=== PATIENT | male | born 1930 | race Caucasian/White ===

== ENCOUNTER 2017-03-08 22:26 | Observation (INO) | payer OTHER, BC ==
[2017-03-08] MEDS ORDERED: IPRATROPIUM/ALBUTEROL 3 ML DEYVIAL IH ONE (23:18)
[2017-03-08 23:23] LABS: % IMMATURE GRANULYOCYTES 0.3 % (0.0-1.1); ABSOLUTE IMMATURE GRANULOCYTES 0.05 10^3/uL (0.00-0.10); ADD DIFF? NO; ADD MORPH? NO; ADD SCAN? NO; ATYPICAL LYMPHOCYTE FLAG 0 (0-99); FRAGMENT RBC FLAG 0 (0-99); HEMATOCRIT 45.5 % (40.0-51.0); HEMOGLOBIN 14.4 g/dL (13.7-17.5); LEFT SHIFT FLG 0 (0-99); LIPEMIA HEMOLYSIS FLAG 80 (0-99); MEAN CELL HEMOGLOBIN CONCENTR. 31.6 g/dL (32.4-36.7); MEAN CELL VOLUME 94.8 fL (81.5-99.8); MEAN PLATELET VOLUME 11.6 fL (8.7-11.7); PLATELET CLUMPS FLAG 0 (0-99); PLATELET COUNT 207 10^3/uL (150-400); RED CELL DISTRIBUTION WIDTH 12.6 % (11.5-15.2)
--- NOTE | 2017-03-08 23:23 | EDPHY ---
H & P Stated Complaint: c/o sob/urgency/frequency beginning today Time Seen by Provider: 03/08/17 22:53 HPI/ROS: HPI The patient presents with shortness of breath which has been intermittent for the last 1-2 weeks with episodes lasting for minutes which became worse today after seeing his doctor in the afternoon. He had the slow onset of difficulty breathing which she feels both at rest and while exerting himself. It is moderate in severity. He had a small amount of home oxygen at home and uses for 2 minutes with improvement in his symptoms. He does not have any chest pain , leg swelling. He does have a change in his cough and has a yellowish phlegm, usually has clear phlegm. He does not have any fevers or chills. He is not taking any new medications. He also reports urinary urgency and frequency with mild dysuria for the last several days.. REVIEW OF SYSTEMS Constitutional: No fever, no chills. Eyes: No discharge. ENT: No sore throat. Cardiovascular: No chest pain, no palpitations. Respiratory: Positive for shortness of breath Gastrointestinal: No abdominal pain, no vomiting. Genitourinary: No hematuria. Musculoskeletal: No back pain. Skin: No rashes. Neurological: No headache. PMHx: COPD an occasional home oxygen, CHF, atrial fibrillation, CAD with stent in place, history of AAA repair, gout, pacer in place Soc Hx: Moved to [place] from [place] about 1 month ago FHx: PHYSICAL General Appearance: Alert, no distress Eyes: Pupils equal and round no pallor or injection ENT, Mouth: Mucous membranes somewhat dry Respiratory: There are no retractions, lungs are clear to auscultation, faint crackles at the bases Cardiovascular: Regular rate and rhythm Gastrointestinal: Abdomen is soft and non-tender, no masses, bowel sounds normal Neurological: A&O, moves all extremities Skin: Warm and dry, no rashes Musculoskeletal: Neck is supple non tender Extremities: symmetrical, full range of motion, trace lower extremity edema Psychiatric: Patient is oriented X 3, there is no agitation Source: Patient, Family Exam Limitations: No limitations - Medical/Surgical History Hx Chronic Respiratory Disease: Yes Hx Diabetes: No Hx Cardiac Disease: Yes Hx Renal Disease: No Hx Cirrhosis: No Hx Alcoholism: No Hx HIV/AIDS: No Hx Splenectomy or Spleen Trauma: No Other PMH: copd, prostate ca, hyperlipidemia, ischemic cardiomyopathy, afib, dvt , aaa repair, chf, gerd, gout, pacemaker placed, hernia repair x 2, card stent placed - Social History Smoking Status: Former smoker Constitutional: Initial Vital Signs Temperature (C) 36.6 C 03/08/17 22:30 Heart Rate 88 03/08/17 22:30 Respiratory Rate 18 03/08/17 22:30 Blood Pressure 173/107 H 03/08/17 22:30 O2 Sat (%) 92 03/08/17 22:30 O2 Delivery Mode Nasal Cannula O2 (L/minute) 2 Allergies/Adverse Reactions: clindamycin Allergy (Verified 03/08/17 22:40) Home Medications: Medication Instructions Recorded Amlodipine Besylate 03/08/17 Aspirin EC 81 mg (*) 03/08/17 Atrovent Hfa (*) 03/08/17 Colchicine 03/08/17 Combivent Respimat Inhal [place](*) 03/08/17 Coumadin 03/08/17 Crestor 03/08/17 Flovent 110 MCG Hfa MDI (*) 03/08/17 Foradil 03/08/17 IRON 03/08/17 Lasix 40 MG (*) 03/08/17 Lisinopril 03/08/17 Nexium 03/08/17 Nitroglycerin 03/08/17 Medical Decision Making - Diagnostics EKG Interpretation: EKG: Complete interpretation has been separately recorded in the [facility] archive. Summary impression: Multiple PVCs, left bundle branch block Imaging Results: Chest x-ray two view shows cardiomegaly, left-sided pleural effusion, some mild bat wing deformity, interpreted by me, radiology interpretation is pending. Differential Diagnosis: This is an 86-year-old male with multiple medical problems including COPD, CHF, atrial fibrillation, CAD presents from home with intermittent shortness of breath became worse today. On exam, he is generally well-appearing with no tachypnea and O2 sat of 92%. Lungs sound diminished throughout. Differential diagnosis includes COPD with exacerbation, CHF exacerbation, ACS, PE. In the emergency department, patient received DuoNeb with some improvement in his symptoms. Labs were checked and did reveal elevated BNP with elevated BUN and creatinine. He may be intravascularly volume depleted but with CHF exacerbation. Labs also reveal hematuria with leukocyte esterase concerning for urinary tract infection. I will treat him with a dose of ceftriaxone. Pulse ox readings here have been in the high 80s to low 90s. He is slightly tachypneic. He is supposed to have home oxygen at home, however does not have it yet. He feels concerned about going home. As I plan to admit him to the hospitalist. I have discussed the case with Dr. Gil. - Data Points Laboratory Results: Laboratory Results 03/08/17 23:15 03/08/17 23:15 03/08/17 03/08/17 03/08/17 23:55 23:15 23:15 WBC RBC Hgb Hct MCV MCH MCHC RDW Plt Count MPV Neut % (Auto) Lymph % (Auto) [place] % (Auto) Eos % (Auto) Baso % (Auto) Nucleat RBC Rel Count Absolute Neuts (auto) Absolute Lymphs (auto) Absolute Monos (auto) Absolute Eos (auto) Absolute Basos (auto) Absolute Nucleated RBC Immature Gran % Immature Gran # D-Dimer 0.69 ug/mLFEU H ug/mLFEU (0.00-0.50) Sodium 138 mEq/L mEq/L (134-144) Potassium 4.7 mEq/L mEq/L (3.5-5.2) Chloride 106 mEq/L mEq/L (97-110) Carbon Dioxide 21 mEq/l L mEq/l (22-31) Anion Gap 11 mEq/L mEq/L (8-16) BUN 35 mg/dL H mg/dL (7-23) Creatinine 1.8 mg/dL H mg/dL (0.7-1.3) Estimated GFR 36 Glucose 130 mg/dL H mg/dL (70-100) Calcium 8.8 mg/dL mg/dL (8.5-10.4) Troponin I 0.024 ng/mL ng/mL (0.000-0.034) NT-Pro-B Natriuret Pep 4590 pg/mL H pg/mL (0-450) Urine Color PALE YELLOW Urine Appearance HAZY Urine pH 6.0 (5.0-7.5) Ur Specific [place] 1.008 (1.002-1.030) Urine Protein NEGATIVE (NEGATIVE) Urine Ketones NEGATIVE (NEGATIVE) Urine Blood 2+ H (NEGATIVE) Urine Nitrate NEGATIVE (NEGATIVE) Urine Bilirubin NEGATIVE (NEGATIVE) Urine Urobilinogen NEGATIVE EU EU (0.2-1.0) Ur Leukocyte Esterase 2+ H (NEGATIVE) Urine RBC 50-182 /hpf H /hpf (0-3) Urine WBC 25-50 /hpf H /hpf (0-3) Ur Epithelial Cells NONE SEEN /lpf /lpf (NONE-1+) Urine Bacteria TRACE /hpf H /hpf (NONE SEEN) Urine Mucus TRACE /lpf /lpf (NONE-1+) Urine Yeast PRESENT /hpf /hpf (NONE SEEN) Urine Glucose NEGATIVE (NEGATIVE) 03/08/17 23:15 WBC 14.47 10^3/uL H 10^3/uL (3.80-9.50) RBC 4.80 10^6/uL 10^6/uL (4.40-6.38) Hgb 14.4 g/dL g/dL (13.7-17.5) Hct 45.5 % % (40.0-51.0) MCV 94.8 fL fL (81.5-99.8) MCH 30.0 pg pg (27.9-34.1) MCHC 31.6 g/dL L g/dL (32.4-36.7) RDW 12.6 % % (11.5-15.2) Plt Count 207 10^3/uL 10^3/uL (150-400) MPV 11.6 fL fL (8.7-11.7) Neut % (Auto) 80.2 % H % (39.3-74.2) Lymph % (Auto) 12.1 % L % (15.0-45.0) [place] % (Auto) 5.8 % % (4.5-13.0) Eos % (Auto) 1.3 % % (0.6-7.6) Baso % (Auto) 0.3 % % (0.3-1.7) Nucleat RBC Rel Count 0.0 % % (0.0-0.2) Absolute Neuts (auto) 11.59 10^3/uL H 10^3/uL (1.70-6.50) Absolute Lymphs (auto) 1.75 10^3/uL 10^3/uL (1.00-3.00) Absolute Monos (auto) 0.84 10^3/uL H 10^3/uL (0.30-0.80) Absolute Eos (auto) 0.19 10^3/uL 10^3/uL (0.03-0.40) Absolute Basos (auto) 0.05 10^3/uL 10^3/uL (0.02-0.10) Absolute Nucleated RBC 0.00 10^3/uL 10^3/uL (0-0.01) Immature Gran % 0.3 % % (0.0-1.1) Immature Gran # 0.05 10^3/uL 10^3/uL (0.00-0.10) D-Dimer Sodium Potassium Chloride Carbon Dioxide Anion Gap BUN Creatinine Estimated GFR Glucose Calcium Troponin I NT-Pro-B Natriuret Pep Urine Color Urine Appearance Urine pH Ur Specific [place] Urine Protein Urine Ketones Urine Blood Urine Nitrate Urine Bilirubin Urine Urobilinogen Ur Leukocyte Esterase Urine RBC Urine WBC Ur Epithelial Cells Urine Bacteria Urine Mucus Urine Yeast Urine Glucose Medications Given: Discontinued Medications Albuterol/Ipratropium (Duoneb) 3 ml IH EDNOW ONE Stop: 03/08/17 23:19 Last Admin: 03/08/17 23:30 Dose: 3 ml Ceftriaxone Sodium/Dextrose (Rocephin 1 Gm (Premix)) 50 mls @ 100 mls/hr IV EDNOW ONE PRN Reason: Protocol Stop: 03/09/17 01:30 Last Admin: 03/09/17 01:07 Dose: 50 mls Departure - Departure Disposition: [facility] Inpatient Acute Clinical Impression: Acute exacerbation of CHF (congestive heart failure) Qualifiers: Congestive heart failure type: unspecified congestive heart failure type Qualified Code(s): I50.9 - Heart failure, unspecified Dyspnea Qualifiers: Dyspnea type: unspecified Qualified Code(s): R06.00 - Dyspnea, unspecified UTI (urinary tract infection) Qualifiers: Urinary tract infection type: site unspecified Hematuria presence: with hematuria Qualified Code(s): N39.0 - Urinary tract infection, site not specified Acute renal failure Qualifiers: Acute renal failure type: unspecified Qualified Code(s): N17.9 - Acute kidney failure, unspecified Condition: Fair
[2017-03-08 23:33] LABS: ANION GAP 11 mEq/L (8-16); CALCIUM 8.8 mg/dL (8.5-10.4); CARBON DIOXIDE 21 mEq/l (22-31); CHLORIDE 106 mEq/L (97-110); CREATININE 1.8 mg/dL (0.7-1.3); GLOMERULAR FILTRATION RATE 36; GLUCOSE 130 mg/dL (70-100); POTASSIUM 4.7 mEq/L (3.5-5.2); SODIUM 138 mEq/L (134-144)
[2017-03-08 23:44] LABS: TROPONIN I 0.024 ng/mL (0.000-0.034)
[2017-03-09 00:10] LABS: COLOR PALE YELLOW; LEUKOCYTE ESTERASE,URINE 2+ (NEGATIVE); NITRITE,URINE NEGATIVE (NEGATIVE)
[2017-03-09 00:20] LABS: BACTERIA TRACE /hpf (NONE SEEN); MUCUS TRACE /lpf (NONE-1+); RBC,URINE 50-182 /hpf (0-3); WBC,URINE 25-50 /hpf (0-3); YEAST PRESENT /hpf (NONE SEEN)
[2017-03-09] MEDS ORDERED: ACETAMINOPHEN 325 MG TAB PO PRN (03:04)
[2017-03-09] MEDS ORDERED: ONDANSETRON DISINTEGRATING 4 MG TAB PO PRN (03:04)
[2017-03-09] MEDS ORDERED: IPRATROPIUM/ALBUTEROL 3 ML DEYVIAL IH PRN (03:04)
[2017-03-09] MEDS ORDERED: ONDANSETRON 4 MG/2 ML VIAL IVP PRN (03:04)
--- NOTE | 2017-03-09 03:56 | PDGENHP ---
History and Physical - Chief Complaint Shortness of breath - History of Present Illness 86 yo M w/ COPD, CHF, CAD presents with shortness of breath. He moved to [place] from [place] 1 month ago and has been intermittently short of breath since. He saw Dr. Recio in the morning of the same day and was noted to be mildly hypoxic with ambulation (85%). He was supposed to have O2 delivered to his house but this never happened. Later in the day after he got home, he began to feel short of breath so he came to the ED. Of note, he also noted new dysuria today, which he has never noticed in the past. He has a chronic cough that he has had for 20 years, which has not increased in severity. He denies other infectious ROS. He has been on a stable dose of diuretics for a long time and reports that his dry weight is 166 lbs. He weighed 165.7 lbs on admission today and is symptom free at the time of my evaluation after duoneb x1 and supplemental O2. History Information - Allergies/Home Medication List Allergies/Adverse Reactions: clindamycin Allergy (Verified 03/08/17 22:40) Home Medications: Amlodipine Besylate 03/08/17 [Last Taken Unknown] Aspirin EC 81 mg (*) 03/08/17 [Last Taken Unknown] Atrovent Hfa (*) 03/08/17 [Last Taken Unknown] Colchicine 03/08/17 [Last Taken Unknown] Combivent Respimat Inhal [place](*) 03/08/17 [Last Taken Unknown] Coumadin 03/08/17 [Last Taken Unknown] Crestor 03/08/17 [Last Taken Unknown] Flovent 110 MCG Hfa MDI (*) 03/08/17 [Last Taken Unknown] Foradil 03/08/17 [Last Taken Unknown] IRON 03/08/17 [Last Taken Unknown] Lasix 40 MG (*) 03/08/17 [Last Taken Unknown] Lisinopril 03/08/17 [Last Taken Unknown] Nexium 03/08/17 [Last Taken Unknown] Nitroglycerin 03/08/17 [Last Taken Unknown] I have personally reviewed and updated: family history, medical history - Past Medical History coronary artery disease, CHF, COPD - Family History Positive for: stroke - Social History Smoking Status: Former smoker (50+ pack years, quit in July of 2016) Alcohol Use: Other (1-2 drinks daily) Drug Use: None Additional social history: [place] [facility] [place] ; moved from [place] 1 month ago Review of Systems Review of Systems: ROS: 10pt was reviewed & negative except for what was stated in HPI & below Physical Exam Physical Exam: Temp Pulse Resp BP Pulse Ox 36.9 C 89 19 160/88 H 94 03/09/17 02:40 03/09/17 02:40 03/09/17 02:40 03/09/17 02:40 03/09/17 02:40 O2 (L/minute) 2 Constitutional: no apparent distress, appears nourished Eyes: PERRL, EOMI Ears, Nose, Mouth, Throat: moist mucous membranes, no oral mucosal ulcers Cardiovascular: regular rate and rhythym, systolic murmur, edema (Trace b/l JAMES) Respiratory: no respiratory distress, expiratory wheeze (Mild, RML) Gastrointestinal: normoactive bowel sounds, soft, non-tender abdomen Skin: warm, normal color Neurologic: AAOx3, CN II-XII Intact Psychiatric: interacting appropriately, not anxious Lab Data & Imaging Review 03/08/17 23:15 03/08/17 23:15 WBC 14.47 10^3/uL (3.80-9.50) H 03/08/17 23:15 RBC 4.80 10^6/uL (4.40-6.38) 03/08/17 23:15 Hgb 14.4 g/dL (13.7-17.5) 03/08/17 23:15 Hct 45.5 % (40.0-51.0) 03/08/17 23:15 MCV 94.8 fL (81.5-99.8) 03/08/17 23:15 MCH 30.0 pg (27.9-34.1) 03/08/17 23:15 MCHC 31.6 g/dL (32.4-36.7) L 03/08/17 23:15 RDW 12.6 % (11.5-15.2) 03/08/17 23:15 Plt Count 207 10^3/uL (150-400) 03/08/17 23:15 MPV 11.6 fL (8.7-11.7) 03/08/17 23:15 Neut % (Auto) 80.2 % (39.3-74.2) H 03/08/17 23:15 Lymph % (Auto) 12.1 % (15.0-45.0) L 03/08/17 23:15 [place] % (Auto) 5.8 % (4.5-13.0) 03/08/17 23:15 Eos % (Auto) 1.3 % (0.6-7.6) 03/08/17 23:15 Baso % (Auto) 0.3 % (0.3-1.7) 03/08/17 23:15 Nucleat RBC Rel Count 0.0 % (0.0-0.2) 03/08/17 23:15 Absolute Neuts (auto) 11.59 10^3/uL (1.70-6.50) H 03/08/17 23:15 Absolute Lymphs (auto) 1.75 10^3/uL (1.00-3.00) 03/08/17 23:15 Absolute Monos (auto) 0.84 10^3/uL (0.30-0.80) H 03/08/17 23:15 Absolute Eos (auto) 0.19 10^3/uL (0.03-0.40) 03/08/17 23:15 Absolute Basos (auto) 0.05 10^3/uL (0.02-0.10) 03/08/17 23:15 Absolute Nucleated RBC 0.00 10^3/uL (0-0.01) 03/08/17 23:15 Immature Gran % 0.3 % (0.0-1.1) 03/08/17 23:15 Immature Gran # 0.05 10^3/uL (0.00-0.10) 03/08/17 23:15 D-Dimer 0.69 ug/mLFEU (0.00-0.50) H 03/08/17 23:15 Sodium 138 mEq/L (134-144) 03/08/17 23:15 Potassium 4.7 mEq/L (3.5-5.2) 03/08/17 23:15 Chloride 106 mEq/L (97-110) 03/08/17 23:15 Carbon Dioxide 21 mEq/l (22-31) L 03/08/17 23:15 Anion Gap 11 mEq/L (8-16) 03/08/17 23:15 BUN 35 mg/dL (7-23) H 03/08/17 23:15 Creatinine 1.8 mg/dL (0.7-1.3) H 03/08/17 23:15 Estimated GFR 36 03/08/17 23:15 Glucose 130 mg/dL (70-100) H 03/08/17 23:15 Calcium 8.8 mg/dL (8.5-10.4) 03/08/17 23:15 Troponin I 0.024 ng/mL (0.000-0.034) 03/08/17 23:15 NT-Pro-B Natriuret Pep 4590 pg/mL (0-450) H 03/08/17 23:15 Urine Color PALE YELLOW 03/08/17 23:55 Urine Appearance HAZY 03/08/17 23:55 Urine pH 6.0 (5.0-7.5) 03/08/17 23:55 Ur Specific [place] 1.008 (1.002-1.030) 03/08/17 23:55 Urine Protein NEGATIVE (NEGATIVE) 03/08/17 23:55 Urine Ketones NEGATIVE (NEGATIVE) 03/08/17 23:55 Urine Blood 2+ (NEGATIVE) H 03/08/17 23:55 Urine Nitrate NEGATIVE (NEGATIVE) 03/08/17 23:55 Urine Bilirubin NEGATIVE (NEGATIVE) 03/08/17 23:55 Urine Urobilinogen NEGATIVE EU (0.2-1.0) 03/08/17 23:55 Ur Leukocyte Esterase 2+ (NEGATIVE) H 03/08/17 23:55 Urine RBC 50-182 /hpf (0-3) H 03/08/17 23:55 Urine WBC 25-50 /hpf (0-3) H 03/08/17 23:55 Ur Epithelial Cells NONE SEEN /lpf (NONE-1+) 03/08/17 23:55 Urine Bacteria TRACE /hpf (NONE SEEN) H 03/08/17 23:55 Urine Mucus TRACE /lpf (NONE-1+) 03/08/17 23:55 Urine Yeast PRESENT /hpf (NONE SEEN) 03/08/17 23:55 Urine Glucose NEGATIVE (NEGATIVE) 03/08/17 23:55 Visualized and Interpreted Chest x-ray results: Yes Chest X-Ray results: effusion (Small, R) Assessment & Plan Assessment: 86 yo M w/ CAD, CHF, and COPD presents with mild SOB and UTI. Plan: 1. Dyspnea - Suspect multifactorial from hypoxia and lack of home O2, fatigue caused by UTI, and mild wheezing noted on admission. Patient's symptoms resolved after duoneb x1 and supplemental O2. I do not think he has a clinically significant CHF exacerbation as he appears euvolemic on exam and he is at his stated dry weight of 166 lbs. Troponin negative. - Duonebs PRN - Continue supplemental O2, arrange home O2 - Will check ECG as not checked in ED 2. UTI - Infectious UA + dysuria x1 day. - CTX 1g IV qD 3. COPD - With mild hypoxia since arriving in [place]. Has not had home O2 arranged yet. Mild wheezing on admission but do not feels this is a true COPD exacerbation noting lack of increased cough/sputum and mild nature of symptoms. - Duonebs PRN - Continue home meds 4. CHF - Only records available for review are from 2003, which show EF of 30-35 %. Patient has AICD in place. Patient on ASA, statin, VIJAY, and furosemide. Appears well compensated and euvolemic on exam and at dry weight of 166 lbs. Established care with Dr. Recio on the day prior to admission. 5. CAD - s/p CABG, on ASA, statin, and CCB. No complaints of chest pain or recent anginal symptoms. 6. CKD - Records from 2003 indicate baseline creatinine of 2.0. Serum creatinine 1.8 on admission here. Diet - Regular Code - Full Ppx - LMWH, low dose noting age Dispo - Admit to observation status
[2017-03-09 05:08] LABS: % IMMATURE GRANULYOCYTES 0.2 % (0.0-1.1); ABSOLUTE IMMATURE GRANULOCYTES 0.03 10^3/uL (0.00-0.10); ADD DIFF? NO; ADD MORPH? NO; ADD SCAN? NO; ATYPICAL LYMPHOCYTE FLAG 0 (0-99); FRAGMENT RBC FLAG 0 (0-99); HEMATOCRIT 42.2 % (40.0-51.0); HEMOGLOBIN 13.3 g/dL (13.7-17.5); LEFT SHIFT FLG 0 (0-99); LIPEMIA HEMOLYSIS FLAG 80 (0-99); MEAN CELL HEMOGLOBIN 29.8 pg (27.9-34.1); MEAN CELL HEMOGLOBIN CONCENTR. 31.5 g/dL (32.4-36.7); MEAN CELL VOLUME 94.6 fL (81.5-99.8); MEAN PLATELET VOLUME 11.2 fL (8.7-11.7); PLATELET CLUMPS FLAG 10 (0-99); PLATELET COUNT 173 10^3/uL (150-400); RED BLOOD CELL COUNT 4.46 10^6/uL (4.40-6.38); RED CELL DISTRIBUTION WIDTH 12.5 % (11.5-15.2)
[2017-03-09 05:35] LABS: ANION GAP 12 mEq/L (8-16); CALCIUM 8.6 mg/dL (8.5-10.4); CARBON DIOXIDE 22 mEq/l (22-31); CHLORIDE 105 mEq/L (97-110); CREATININE 1.7 mg/dL (0.7-1.3); GLOMERULAR FILTRATION RATE 38; GLUCOSE 119 mg/dL (70-100); POTASSIUM 4.1 mEq/L (3.5-5.2); SODIUM 139 mEq/L (134-144)
[2017-03-09 07:08] VITALS: PULSE 81; RESP 20
[2017-03-09] MEDS ORDERED: ENOXAPARIN 30 MG/0.3 ML SYR SC SCH (09:00)
[2017-03-09 11:24] VITALS: BP 153/83; TEMP 98.3; O2SAT 95
--- NOTE | 2017-03-09 14:31 | PDHOMEO2F ---
Home Oxygen Face to Face Home Orders: I certify that a physician or a nurse practitioner or physician's administrative assistant has had a [id number] encounter with this patient on the date of this order due to the diagnosis listed, which relates to the primary reason the patient requires home oxygen. Alternative treatments have been tried, or considered, and deemed ineffective. It is anticipated that supplemental oxygen will result in improvement with treatment. Home oxygen qualifying diagnosis: COPD, CHF SpO2 on room air (%): 85 Frequency of home oxygen needed: continuous Home oxygen liters per minute: 2 Home oxygen delivery device: nasal cannula Concentrator: Yes E-tanks for mobility and back up: Yes If ordering portable O2, is the patient mobile in the home?: Yes I certify that, based on these findings, the home oxygen is medically necessary for this patient for the following length of time. Length of time home oxygen needed: 99 years
[2017-03-09] MEDS ORDERED: NITROGLYCERIN 0.4 MG BTL SL PRN (14:35)
--- NOTE | 2017-03-09 14:40 | ASMTCMCOM ---
CM Note CM Note Notes: Pt. is an 86-year-old man admitted with a CHF exacerbation and a UTI. Pt. needs new O2. Per RN, Pt and just moved to [place] from . Pt. lives w/ his - anticipate independent d/c when ready. CM available should d/c POC change. Date Signed: 03/09/2017 02:39 PM Electronically Signed By:Emily Villeda LCSW
--- NOTE | 2017-03-09 15:23 | GDS ---
[f rep st] DISCHARGE SUMMARY ALL DIAGNOSES: 1. Dyspnea. 2. Chronic obstructive pulmonary disease. 3. Chronic congestive heart failure. 4. Urinary tract infection. 5. Coronary artery disease, status post CABG. 6. Chronic kidney disease. 7. Leukocytosis. HOSPITAL COURSE: An 86-year-old man, who had been seen in Dr. Recio's office earlier in the day, found to be hypoxic. Home oxygen had been ordered, although, it was never delivered. He began to fe el dyspneic, thus presented to the emergency department, where he was also found to be hypoxic. He t ells me that his dyspnea is completely resolved on oxygen. Workup here included a D-dimer, which was 0.69, negative given his age, and he is on Coumadin, though INR was not drawn. Chest x-ray showed c hronic changes, including cardiomegaly, bronchitis, with no acute infiltrates noted. He has no evide nce of a CHF exacerbation on exam. He does have an elevated BNP, with no known baseline. I think hi s hypoxia is most likely chronic and related to altitude, as he had recently moved from [place]. I recommend that he follow up in Dr. Recio's office soon to revaluate. He also needs to establish w ith a primary care physician. His urinary tract infection with symptoms of dysuria (which is resolved with Rocephin administration) and pyuria on UTI. Urine culture is pending at the time of discharge. He will be given a course of an additional 6 days of Keflex to complete treatment for an uncomplicated urinary tract infection. He has underlying COPD. He will continue on his home inhalers. He is mildly wheezy, though notably not dyspneic when I am seeing him. Does have history of CHF with an EF 30% to 35%. He has an AICD in place. He is on appropriate treat ment. He will follow up with Dr. Recio. CONDITION ON DISCHARGE: He is discharged in stable condition. PENDING STUDIES: Urine culture. FOLLOW UP: 1. Dr. Recio. 2. Establish with a PCP. /[id number]/MODL
[2017-03-09] MEDS ORDERED: IPRATROPIUM/ALBUTEROL 4GM MDI IH SCH (16:00)
--- NOTE | 2017-03-09 17:05 | ASDISCHSUM ---
Discharge Information Plan Status:Home with No Needs Medically Cleared to Leave: Discharge Date:03/09/2017 04:52 PM CM D/C Disposition:Home, Routine, Self-Care ADT D/C Disposition:Home, Routine, Self-Care Projected Discharge Date:03/09/2017 04:52 PM Transportation at D/C: Discharge Delay Reason: Follow-Up Date:03/09/2017 04:52 PM Discharge Slot: Final Diagnosis: Placement Information Patient Contact Information Contact Name:EDEN Relationship: Address:[id number] [place] [address] Work Phone: Jam:[employer] Alternate Phone: [facility]/Zip Code:[place] [address] Email: Financial Information Financial Class: Primary Plan Desc:MEDICARE OUTPATIENT Primary Plan Number:[id number] Secondary Plan Desc:[facility] [employer] Secondary Plan Number:[id number] Assessment Information [facility] CM Progress Note CM Note CM Note Notes: Pt. is an 86-year-old man admitted with a CHF exacerbation and a UTI. Pt. needs new O2. Per RN, Pt and just moved to [place] from . Pt. lives w/ his - anticipate independent d/c when ready. CM available should d/c POC change. Date Signed: 03/09/2017 02:39 PM Electronically Signed By:Emily Villeda LCSW Intervention Information
[2017-03-09] MEDS ORDERED: ASPIRIN 81 MG CHEWABLE TAB PO SCH (21:00)
[2017-03-09] MEDS ORDERED: FLUTICASONE HFA 110 MCG MDI IH SCH (21:00)
[2017-03-09] MEDS ORDERED: ROSUVASTATIN CALCIUM 40 MG TAB PO SCH (21:00)
[2017-03-09] MEDS ORDERED: IPRATROPIUM HFA INHALER IH SCH (21:00)
[2017-03-10] MEDS ORDERED: FERROUS SULFATE 325 MG TAB PO SCH (09:00)
[2017-03-10] MEDS ORDERED: LISINOPRIL 10 MG TAB PO SCH (09:00)
[2017-03-10] MEDS ORDERED: FUROSEMIDE 40 MG TAB PO SCH (09:00)
[2017-03-10] MEDS ORDERED: PRESERVISION AREDS2 FORMULA EYE VIT 1 EACH PO SCH (09:00)
[2017-03-10] MEDS ORDERED: PANTOPRAZOLE SODIUM 40 MG TAB PO SCH (09:00)
[2017-03-10] MEDS ORDERED: amLODIPine BESYLATE 5 MG TAB PO SCH (09:00)
[2017-03-10] MEDS ORDERED: ATENOLOL 50 MG TAB PO SCH (09:00)
[2017-03-11] MEDS ORDERED: WARFARIN SODIUM 2 MG TAB PO SCH (08:00)
[2017-03-11] MEDS ORDERED: COLCHICINE 0.6 MG CAP/TAB PO SCH (09:00)
== END 2017-03-09 16:52 | disposition home or self-care (01) ==
LOC: F2W 03-09 02:13
PROVIDERS: ADMIT Student in an Organized Health Care Education/Training Program; ATTEND Student in an Organized Health Care Education/Training Program
DX: R06.00 Dyspnea, unspecified (principal); J44.9 Chronic obstructive pulmonary disease, unspecified; I50.9 Heart failure, unspecified; N39.0 Urinary tract infection, site not specified; I25.10 Atherosclerotic heart disease of native coronary artery without angina pectoris; N18.9 Chronic kidney disease, unspecified; N17.9 Acute kidney failure, unspecified; D72.829 Elevated white blood cell count, unspecified; R79.89 Other specified abnormal findings of blood chemistry; I48.91 Unspecified atrial fibrillation; M10.9 Gout, unspecified; E78.5 Hyperlipidemia, unspecified; I25.5 Ischemic cardiomyopathy; K21.9 Gastro-esophageal reflux disease without esophagitis; Z79.01 Long term (current) use of anticoagulants; Z85.46 Personal history of malignant neoplasm of prostate; Z86.718 Personal history of other venous thrombosis and embolism; Z87.891 Personal history of nicotine dependence; Z95.1 Presence of aortocoronary bypass graft; Z95.810 Presence of automatic (implantable) cardiac defibrillator; Z95.5 Presence of coronary angioplasty implant and graft
CPT/HCPCS: 71020; G0378; J0696; J1650; 96365

== ENCOUNTER → 2017-03-29 | Outpatient (CLI) | payer OTHER, BC | LOC: BHFA 14:00 | PROVIDERS: ATTEND Internal Medicine Interventional Cardiology | DX: I25.10 Atherosclerotic heart disease of native coronary artery without angina pectoris (principal); I25.5 Ischemic cardiomyopathy; Z95.810 Presence of automatic (implantable) cardiac defibrillator | CPT/HCPCS: 78452; 93017; A9500; J2785 ==

== ENCOUNTER 2017-06-23 17:54 | Observation (INO) | payer OTHER, BC ==
--- NOTE | 2017-06-23 17:53 | EDPHY ---
H & P HPI/ROS: CHIEF COMPLAINT: Weakness HISTORY OF PRESENT ILLNESS: The patient is an anticoagulated 86 y/o male with a history of COPD, CAD, CHF, and a CABG arriving via EMS for weakness. He wears 2.0L home O2 at night and occasionally during the day. He was admitted to this hospital on 03/09/17, 3 months ago, for dyspnea. This past week his INR was measured at 3.0. 2 days ago he hit his head on a cabinet and has a small laceration on his head. Around 2.5 hours ago, he felt unsteady while walking down the [place]. He felt off balance and thought he might fall. Denies having the room spinning during this episode. He then checked his blood pressure at home, which was high. He is currently feeling weak and tired, but he is no longer dizzy. However, he continues to feel unsteady while walking, as if he has to hold on to something to maintain his balance. Denies needing assistance for walking. Denies pain, headache, change in vision, weakness in extremities, numbness or tingling, chest pain, difficulty breathing, change in cough, vomiting or other pertinent symptoms. REVIEW OF SYSTEMS: A ten point review of systems was performed and is negative with the exception of the items mentioned in the HPI. Increased pedal edema over the past 6 months , since moving to [place] from [place]. Diarrhea since colectomy performed years ago. Chronic cough. Past medical history: COPD CHF CAD Pacemaker with defibrillator Spinal stenosis Leukocytosis Hypertension Past surgical history: CABG- coronary artery Partial colectomy (1996) AAA repair Family history: Denies Social history: at bedside Lives in [place] Retired Smoker General Appearance: Alert. Vital signs reviewed. Blood pressure 165/78. Head: Normocephalic. Eyes: Pupils equal and round, no conjunctival injection, no discharge. Anicteric. ENT, Mouth: Mucous membranes are moist, no oropharyngeal erythema or edema. Upper and lower plate dentures. Neck: No lymphadenopathy, supple. Respiratory: Lungs are clear to auscultation; no wheezes, rales, or rhonchi. Cardiovascular: Frequent ectopy. Regular rate and rhythm; no murmur, rub, or gallop. Gastrointestinal: Abdomen is soft and nontender, no masses or organomegaly, bowel sounds normal. Skin: Scattered bruises on arms. 1/3cm superficial laceration on head. Warm and dry, no rashes on exposed skin, normal color. Back: Nontender to palpation over the thoracolumbar spine. No CVAT. Extremities: Trace lower extremity edema, no calf tenderness or swelling. Neurological: Off balance while ambulating, wants to hold on to something for support, bobbling. Alert and oriented. Moving all four extremities easily and equally. Cranial nerves II through XII are examined and are intact (visual acuity not tested). Strength is 5 over 5 bilaterally with testing of all major motor groups individually. Speech is clear and fluent. Psychiatric: Normal affect. Constitutional: Initial Vital Signs Temperature (C) 36.5 C 06/23/17 18:09 Heart Rate 81 06/23/17 18:09 Respiratory Rate 18 06/23/17 18:09 Blood Pressure 165/78 H 06/23/17 18:09 O2 Sat (%) 94 06/23/17 18:09 O2 Delivery Mode Nasal Cannula O2 (L/minute) 2 Allergies/Adverse Reactions: clindamycin Allergy (Verified 03/08/17 22:40) Home Medications: Medication Instructions Recorded Aspirin [Aspirin 81mg (*)] 81 mg PO HS 03/09/17 Atenolol [Tenormin 50 mg (*)] 50 mg PO DAILY 03/09/17 Cholecalciferol (Vitamin D3) 2,000 unit PO DAILY 03/09/17 [Vitamin D3] Esomeprazole Mag Trihydrate 40 mg PO DAILY 03/09/17 [Nexium] Ferrous Sulfate [Ferrous Sulf 325 325 mg PO DAILY 03/09/17 MG (*)] Fluticasone Hfa 110 Mcg [Flovent 2 puffs IH BID 03/09/17 110 MCG Hfa MDI (*)] Furosemide [Lasix 40 MG (*)] 40 mg PO DAILY 03/09/17 Lisinopril [Zestril 10 mg (*)] 10 mg PO DAILY 03/09/17 Nitroglycerin [Nitrostat 0.4 mg 0.4 mg SL Q5M PRN 03/09/17 (*)] Rosuvastatin Calcium [Crestor 40mg 40 mg PO HS 03/09/17 (*)] Warfarin Sodium [Coumadin 2MG (*)] 2 mg PO MWF@1600 03/09/17 amLODIPine BESYLATE [Norvasc 5 mg 5 mg PO DAILY 03/09/17 (*)] C/E/Zn/Cu/OM3/DHA/EPA/LUT/ZEAX 1 each PO BID 06/23/17 [Preservision Areds 2 Softgel] Colchicine [Colchicine (*)] 0.6 mg PO .1-2DAYS/WEEK 06/23/17 Gabapentin [Neurontin 100 MG (*)] 100 mg PO BID 06/23/17 Ipratropium [Atrovent Hfa (*)] 3 puffs IH TID 06/23/17 Ipratropium/Albuterol [Combivent 1 inh IH DAILY 06/23/17 Respimat Inhal [place](*)] Warfarin Sodium [Coumadin 2MG (*)] 1 mg PO SUTUTHFRSA@1600 06/23/17 Medical Decision Making - Diagnostics Imaging: Discussed imaging studies w/ tube machine operator helper Radiologist, I viewed and interpreted images myself ED Course/Re-evaluation: The patient is an anticoagulated 86 y/o male with a history of COPD, CHF, CAD, CABG, and a colectomy arriving via EMS presenting with , weakness and feeling off balance for the past 2.5 hours. On exam he has frequent ectopy, scattered bruises on his arms, and a 1/3cm superficial laceration to his head. Plan on labs, EKG, chest x-ray, and head CT. 1806: The 12 lead EKG was interpreted by myself as sinus rhythm with a rate of 78, LBBB, and ventricular bigeminy. See hard copy and/or "tracemaster" electronic copy for interpretation. No previous EKG for comparison. 1843: Spoke with Dr. Amos, radiologist, he reports there is no new trauma/ bleed. 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 1858: Reassessed patient and discussed head CT and laboratory findings. Neurological Exam:Strength is 5 over 5 bilaterally with testing of all major motor groups. Sensation is intact to light touch over all 4 extremities. Denies feeling dizzy. 1943: Reassessed patient; he felt unsteady while walking with an ct scan technologist. While walking with me he still feels unsteady but is not dizzy. He is shuffling, taking relatively short steps. His [id number] believes his gait was more "estefany" than normal. Both the patient and his daughter state that this is not his usual gait. 2019: Consulted with [facility], regarding the patient's symptoms. Full CVA/TIA workup recommended. He is not a candidate for tPA. 2037: Patient will need to be admitted due to inability to ambulate safely and CVA workup. Patient and his family are comfortable with this plan. Differential Diagnosis: I considered a differential diagnosis that includes but is not limited to intracranial hemorrhage, intracranial mass, coagulopathy, CVA, TIA, seizure, Parkinson's, and progressive gait disability. - Data Points Laboratory Results: Laboratory Results 06/23/17 18:00 06/23/17 18:00 Medications Given: Albuterol/Ipratropium (Combivent Respimat Inhal [place]) 1 inh IH DAILY [facility] Stop: 12/21/17 08:59 Last Admin: 06/24/17 11:21 Dose: Not Given Amlodipine Besylate (Norvasc) 5 mg PO DAILY [facility] Stop: 12/21/17 08:59 Last Admin: 06/24/17 09:45 Dose: 5 mg Atenolol (Tenormin) 50 mg PO DAILY [facility] Stop: 12/21/17 08:59 Last Admin: 06/24/17 09:45 Dose: 50 mg Fluticasone Propionate (Flovent Hfa) 2 puffs IH BID [facility] Stop: 12/21/17 08:59 Last Admin: 06/24/17 11:20 Dose: Not Given Furosemide (Lasix) 40 mg PO DAILY [facility] Stop: 12/21/17 08:59 Last Admin: 06/24/17 09:46 Dose: 40 mg Gabapentin (Neurontin) 100 mg PO BID [facility] Stop: 12/21/17 00:29 Last Admin: 06/24/17 09:46 Dose: 100 mg Sodium Chloride (Ns) 1,000 mls @ 75 mls/hr IV CONT [facility] Stop: 12/20/17 22:59 Last Admin: 06/24/17 00:30 Dose: 1,000 mls Sodium Chloride (1/2 Ns) 1,000 mls @ 75 mls/hr IV CONT [facility] Stop: 12/21/17 06:44 Last Admin: 06/24/17 10:04 Dose: 1,000 mls Ipratropium [place] (Atrovent Hfa) 3 puffs IH TID [facility] Stop: 12/21/17 08:59 Last Admin: 06/24/17 11:21 Dose: Not Given Lisinopril (Zestril) 10 mg PO DAILY [facility] Stop: 12/21/17 08:59 Last Admin: 06/24/17 09:46 Dose: 10 mg Pantoprazole Sodium (Protonix) 40 mg PO DAILY [facility] Stop: 12/21/17 08:59 Last Admin: 06/24/17 09:45 Dose: 40 mg Rosuvastatin Calcium (Crestor) 40 mg PO HS [facility] Stop: 12/21/17 00:29 Last Admin: 06/24/17 01:28 Dose: 40 mg Warfarin Sodium (Coumadin) 1 mg PO SUTUTHFRSA@1600 [facility] Stop: 12/21/17 00:29 Last Admin: 06/24/17 01:28 Dose: 1 mg Departure - Departure Disposition: [facility] Inpatient Acute Clinical Impression: Disequilibrium, Decreased ambulation status Condition: Fair Report Scribed for: Neeru Ibarra Report Scribed by: Bobbi Shaw Date of Report: 06/23/17 Time of Report: 17:54 Physician Review and Approval Statement: 06/23/17 17:53 Portions of this note were transcribed by the medical anthropologist. I, Dr. Neeru Ibarra, personally performed the history, physical exam, and medical decision- making; and confirmed the accuracy of the information in the transcribed note.
--- NOTE | 2017-06-23 18:09 | CPEKG ---
Heart Rate: 78 RR Interval: 769 P-R Interval: 184 QRSD Interval: 158 QT Interval: 428 QTC Interval: 488 P Coello: 26 QRS Coello: 16 T Wave Coello: 194 EKG Severity - ABNORMAL ECG - EKG Impression: SINUS RHYTHM EKG Impression: VENTRICULAR BIGEMINY EKG Impression: PROBABLE LEFT ATRIAL ABNORMALITY EKG Impression: LEFT BUNDLE BRANCH BLOCK EKG Impression: INFERIOR Q WAVES, POSSIBLY DUE TO LBBB Electronically Signed By: Neeru Ibarra 23-Jun-2017 18:22:41
[2017-06-23 18:19] LABS: PLATELET COUNT 193 10^3/uL (150-400)
[2017-06-23 18:26] LABS: INR 1.62 (0.83-1.16); PROTIME(PATIENT) 19.4 SEC (12.0-15.0)
[2017-06-23] MEDS ORDERED: ONDANSETRON 4 MG/2 ML VIAL IVP PRN (22:55)
[2017-06-23] MEDS ORDERED: ACETAMINOPHEN 325 MG TAB PO PRN (22:55)
[2017-06-23] MEDS ORDERED: NS 1,000 ML IV SCH (23:00)
[2017-06-24] MEDS ORDERED: NITROGLYCERIN 0.4 MG BTL SL PRN (00:28)
[2017-06-24] MEDS ORDERED: WARFARIN SODIUM 1 MG TAB PO SCH (00:30)
[2017-06-24] MEDS ORDERED: ROSUVASTATIN CALCIUM 40 MG TAB PO SCH (00:30)
[2017-06-24] MEDS ORDERED: ASPIRIN 81 MG CHEWABLE TAB PO SCH ×2 (00:58→09:00)
[2017-06-24] MEDS: GABAPENTIN 100 MG CAP PO SCH ×2 (01:28→09:46)
[2017-06-24 05:29] LABS: PLATELET COUNT 171 10^3/uL (150-400)
[2017-06-24 05:32] LABS: INR 1.65 (0.83-1.16); PROTIME(PATIENT) 19.6 SEC (12.0-15.0)
[2017-06-24] MEDS ORDERED: HEPARIN 5,000 UNIT/0.5 ML SYR SC SCH (06:00)
[2017-06-24] MEDS ORDERED: 1/2 NS 1,000 ML IV SCH (06:45)
--- NOTE | 2017-06-24 06:45 | PDGENHP ---
History and Physical - Chief Complaint unsteady gait - History of Present Illness Source - patient provides history and appears reliable. EMR reviewed and case discussed with ED provider. HPI - Pleasant 86 yo M with pmhx significant for systolic CHF s/p AICD, COPD, nocturnal hypoxia, on chronic anticoagulation for history of recurrent LE DVt who presents to the ED this evening with family for unsteady gait and some generalized weakness today. Patient denies any headache, vertigo, changes in vision, chest pain, extremity numbness/tingling or leg heaviness. Patient denies any recent falls. He did however hit his head on an open kitchen cabinet 2 days ago. he denies any subsequent neurologic symptoms or headache. He did have a small abrasion to his mid forehead. Patient denies any LOC or increased confusion following this episode. Patient denies any recent illnesses , palpitations. History Information - Allergies/Home Medication List Allergies/Adverse Reactions: clindamycin Allergy (Verified 03/08/17 22:40) Home Medications: Aspirin [Aspirin 81mg (*)] 81 mg PO HS 03/09/17 [Last Taken 06/22/17] Atenolol [Tenormin 50 mg (*)] 50 mg PO DAILY 03/09/17 [Last Taken 06/23/17] Cholecalciferol (Vitamin D3) [Vitamin D3] 2,000 unit PO DAILY 03/09/17 [Last Taken 06/23/17] Esomeprazole Mag Trihydrate [Nexium] 40 mg PO DAILY 03/09/17 [Last Taken ] Ferrous Sulfate [Ferrous Sulf 325 MG (*)] 325 mg PO DAILY 03/09/17 [Last Taken 06/23/17] Fluticasone Hfa 110 Mcg [Flovent 110 MCG Hfa MDI (*)] 2 puffs IH BID 03/09/17 [ Last Taken 06/23/17] Furosemide [Lasix 40 MG (*)] 40 mg PO DAILY 03/09/17 [Last Taken 06/23/17] Lisinopril [Zestril 10 mg (*)] 10 mg PO DAILY 03/09/17 [Last Taken 06/23/17] Nitroglycerin [Nitrostat 0.4 mg (*)] 0.4 mg SL Q5M PRN 03/09/17 [Last Taken Unknown] Rosuvastatin Calcium [Crestor 40mg (*)] 40 mg PO HS 03/09/17 [Last Taken ] Warfarin Sodium [Coumadin 2MG (*)] 2 mg PO MWF@1600 03/09/17 [Last Taken ] amLODIPine BESYLATE [Norvasc 5 mg (*)] 5 mg PO DAILY 03/09/17 [Last Taken ] C/E/Zn/Cu/OM3/DHA/EPA/LUT/ZEAX [Preservision Areds 2 Softgel] 1 each PO BID [Last Taken 06/23/17 08:00] Colchicine [Colchicine (*)] 0.6 mg PO .1-2DAYS/WEEK 06/23/17 [Last Taken ] Gabapentin [Neurontin 100 MG (*)] 100 mg PO BID 06/23/17 [Last Taken 06/23/17 08 :00] Ipratropium [Atrovent Hfa (*)] 3 puffs IH TID 06/23/17 [Last Taken 06/23/17] Ipratropium/Albuterol [Combivent Respimat Inhal [place](*)] 1 inh IH DAILY [Last Taken 06/23/17] Warfarin Sodium [Coumadin 2MG (*)] 1 mg PO SUTUTHFRSA@1600 06/23/17 [Last Taken 06/22/17 16:00] I have personally reviewed and updated: family history, medical history, social history, surgical history - Past Medical History coronary artery disease, CHF (systolic last known EF 30% s/p AICD, CABG, cath/ stent), COPD Additional medical history: CHF systolic. CAD. HTN. HLD. prostate CA. nocturnal hypoxia. spinal stenosis. HTN. CKD 3. chronic diarrhea s/p partial colectomy. LE edema. GERD. gout - Surgical History Additional surgical history: CABG. cath/stent. partial colectomy. AAA repair. hernia repair x 2. AICD placement. c-scope. cataracts. blepheroplasty - Family History Positive for: stroke (father age 79) Additional family history: children are healthy - Social History Smoking Status: Former smoker (quit 07/2016, 60 pack year hx.) Tobacco Use: Cigarettes Alcohol Use: Occasionally (2-3 nights/week wine or single liquor beverage) Drug Use: None Additional social history: Lives in [facility] [place] with his of 47 years; moved from [place] jan 2017. COR - FULL. Desiree Ellsworth to act as proxy if needed. Review of Systems Review of Systems: ROS: 10pt was reviewed & negative except for what was stated in HPI & below Constitutional: Reports: no symptoms. Denies: chills, fever EENMT: Reports: no symptoms Cardiac: Reports: no symptoms. Denies: chest pain, edema, lightheadedness, palpitations Respiratory: Reports: cough (chronic cough since 1996). Denies: shortness of breath, wheezing Gastrointestinal: Reports: no symptoms Genitourinary: Reports: no symptoms Muscolosketal: Reports: no symptoms Skin: Reports: other (abrasion forehead) Neurological: Reports: other (see HPI) Physical Exam Physical Exam: Selected Entries 06/23/17 06/23/17 18:09 23:50 Blood Pressure Automatic Method Heart Rate 81 55 L Respiratory 18 16 Rate O2 Sat (%) 94 98 Temperature (C) 36.5 C 36.4 C Blood Pressure 165/78 H 149/81 H Mean Arterial 107 H 103 H Pressure (MAP) O2 (L/minute) 2 4 Activity During At Rest Vital Signs O2 Delivery Nasal Cannula Nasal Cannula Mode Blood Pressure Right Source Upper Arm Automatic Heart Rate/ Monitor Temperature Oral Oral Source Heart Rate Heart Rate/ Source Monitor Constitutional: no apparent distress, appears nourished, chronically ill appearing, other (NAD. pleasant elderly frail appearing male sitting up in bed. ) Eyes: PERRL, anicteric sclera, EOMI, other (bilateral lens reflex appreciated. ) Ears, Nose, Mouth, Throat: moist mucous membranes, No poor dentition (dentures) , No hard of hearing Cardiovascular: regular rate and rhythym, systolic murmur, edema (trace) Peripheral Pulses: 1+: dorsalis-pedis (R), dorsalis-pedis (L) Respiratory: no respiratory distress, no rales or rhonchi, clear to auscultation , reduced air movement (slightly decreased bibasilar) Gastrointestinal: normoactive bowel sounds, soft, non-tender abdomen, no palpable masses, No guarding, No distension Genitourinary: no bladder tenderness, No ruiz in urethra Skin: other (scabbed abrasion to centro-posterior forehead) Musculoskeletal: full muscle strength (sits up independently. able to raise all extremities. strength grossly normal and symmetric. ) Neurologic: AAOx3, sensation intact bilaterally, CN II-XII Intact, other (no pronator drift), No weakness, No numbness, No facial droop Psychiatric: not anxious, not encephalopathic, thought process linear, No poor insight, No poor judgement, No poor memory Lab Data & Imaging Review 06/24/17 05:13 06/24/17 05:13 Laboratory Tests 06/23/17 06/23/17 06/23/17 18:00 18:00 18:00 WBC 7.20 RBC 4.41 Hgb 13.5 L Hct 42.6 MCV 96.6 MCH 30.6 MCHC 31.7 L RDW 13.0 Plt Count 193 MPV 11.0 Neut % (Auto) 68.1 Lymph % (Auto) 21.4 [place] % (Auto) 6.5 Eos % (Auto) 2.8 Baso % (Auto) 0.8 Nucleat RBC Rel Count 0.0 Absolute Neuts (auto) 4.90 Absolute Lymphs (auto) 1.54 Absolute Monos (auto) 0.47 Absolute Eos (auto) 0.20 Absolute Basos (auto) 0.06 Absolute Nucleated RBC 0.00 Immature Gran % 0.4 Immature Gran # 0.03 PT 19.4 H INR 1.62 H APTT 28.6 Sodium 145 H Potassium 4.2 Chloride 109 Carbon Dioxide 26 Anion Gap 10 BUN 26 H Creatinine 1.8 H Estimated GFR 36 Glucose 108 H Calcium 8.6 Troponin I 0.017 Imaging Review: Upright Chest, PA and Lateral Views, at 6:05 PM Clinical History: 86-year-old male in the ED with some dizziness, unsteadiness , and shortness of breath. Comparison Studies: Chest radiography, dated 03/09/2017 and 11/14/2006. Findings: Oxygen tubing and telemetry monitoring lead lines are present. There are median sternotomy wires and mediastinal surgical clips, consistent with prior CABG. There are also some surgical clips in the anterior upper abdomen. There is a left subclavian unipolar AICD pacemaker, which terminates in the right atrium. The cardiac silhouette is enlarged, with a left ventricular configuration. The cardiac and mediastinal silhouette is normal in size. There is mild peribronchial thickening. There is eventration of the anterior right hemidiaphragm with some stable lateral segment right middle lobe linear scarring, which is similar to the study in February. There is a stable convex-edged density along the lower right paratracheal space , reassuringly unchanged from 2006, and probably related to some tortuous innominate vasculature. There is mild tortuosity of the descending thoracic aorta as well. There is no peripheral interstitial edema or pneumothorax. The osseous structures are age-appropriate, with degenerative features. Impression: 1. Stable postoperative change following prior CABG, with chronic mild cardiomegaly but no evidence of CHF. 2. Mild peribronchial thickening. 3. Right middle lobe linear parenchymal fibrosis, similar to 03/09/2017, with eventration of the anterior right hemidiaphragm. CT Scan of the Head (Without Contrast) Clinical History: 86-year-old male presenting to the ED with a recent history of dizziness and unsteadiness, who hit his head on a cabinet 2 days ago, and has a laceration on his head; he denies any loss of consciousness or visual changes. Technique: Axial unenhanced images were obtained from the vertex through the skull base, reformatted at 5.00 and 1.50 mm increments, and reviewed in bone, brain, and subdural windows. Images were reprocessed in parasagittal and paracoronal planes. Dose reduction techniques were utilized. The DFOV is 25.9 cm. Comparison Study: None. Findings: There is a moderate degree of age-related cerebral and cerebellar atrophy, with prominence of the ventricles and basilar cisterns and cortical sulcal widening. There is periventricular diminished attenuation, consistent with chronic microvascular ischemic gliosis. There are a couple of old lacunar infarcts seen in the left frontal lobe (on series 6, image 51 and 67, for example). There is no midline shift, or other evidence of mass effect. There is no abnormal intra or extra-axial blood collection, or acute infarction identified. The mastoids are patent. There is some minimal chronic mucosal thickening associated with the inferior frontal sinuses, the ethmoids, the anterior superior sphenoid, and the right left maxillary sinuses. The degree of mucosal thickening is most pronounced in the floor of the right maxillary sinus. There is trace rightward nasal septal deviation. There is no air-fluid level, or osseous erosive change. There is atherosclerotic calcification of the right vertebral artery near the skull base , circumferentially involving the proximal basilar artery, and also involving the parasellar portions of the internal carotid arteries. The craniocervical junction, sella turcica, and the orbits are within normal limits. There is an empty sella turcica. There is no acute calvarial fracture, or osteolytic or blastic lesion. Impression: Moderate senescent features, with no acute intracranial abnormality identified on this unenhanced CT evaluation. If there is further clinical concern regarding the patient's symptoms, MR imaging is suggested, if not otherwise contraindicated. Bilateral Duplex Carotid Sonography Clinical Indications: 86-year-old male inpatient admitted with an unsteady gait. The patient has a history of medically controlled hypertension, and has had prior stent placement, and a history of an WA in 2003. Rule out hemodynamically significant carotid stenosis. Technique: The cervical portions of the carotid and vertebral arteries were imaged and interrogated by color and pulsed Doppler. Color and spectral Doppler analysis was performed. Cine clips are stored on PACS. Comparison Study: None. Findings: Right Carotid Artery: The common carotid artery, bulb, and internal and external carotid arteries are well-imaged. The internal carotid artery is tortuous, and there is calcific echogenic plaque at the level of the carotid bulb, extending into the internal carotid artery. The peak systolic velocity in the internal carotid artery is 65 cm/s, and the internal carotid artery peak diastolic velocity is 19 cm/s. The ICA to CCA systolic and diastolic ratios are normal. The right to left ICA systolic ratio is normal. The external carotid artery is patent. Left Carotid Artery: The common carotid artery, bulb, and the internal and external carotid arteries are well-imaged. As on the contralateral side, the internal carotid artery is tortuous, and there is calcific echogenic plaque at the level of the carotid bulb, extending into the internal carotid artery. The peak systolic velocity in the internal carotid artery is 85 cm/s, with a peak diastolic velocity 19 cm/s. The ICA to CCA systolic and diastolic ratios are normal. The external carotid artery is patent. Vertebral Arteries: Antegrade flow is shown by pulsed Doppler of each vertebral artery. The peak systolic velocity in the right vertebral artery is 35 cm/s, and in the left vertebral artery is 42 cm /s. Impression: 1. Bilaterally tortuous internal carotid arteries with bilateral calcific plaque at the level of each carotid bulb, extending into the internal carotid arteries (right greater than left); however, there is no sonographic evidence of a hemodynamically significant ICA stenosis. 2. Patent, antegrade vertebral arteries. Measurement of carotid stenosis is based on velocity parameters that correlate the residual internal carotid diameter with [place] Symptomatic Carotid Endarterectomy Trial (NASCET) based stenosis levels. Visualized and Interpreted imaging results: Yes Visualized and Interpreted EKG results: Yes EKG additional interpertation: NAD 70s. LBBB. bigeminy, inferior qwaves Assessment & Plan Assessment: Pleasant 86 yo M with CHF/COPD/on coumadin for hx remote/recurrent DVT presents to ED today with unsteady gait. #Decreased ambulation status (Acute) - etiology ddx including TIA/CVA vs deconditioning vs spinal stenosis vs dehydration. s/p NS bolus in ED. encourage po hydration. IVF. PT/OT. neuro testing. carotid dopplers/echo in AM. #Disequilibrium (Acute) - plan as above. neuro testing. TIA/CVA work up. pt ineligible for MRI with hx of AICD. CT noting old frontal lacunar infarct. will proceed with full neuro work up as recommended by Dustin Webb per ED provider. #hypernatremia - likely 2/2 volume contraction. s/p NS in ED. encourage PO hydration and IVF supplementation if needed. #lucas on ckd 3 - likely 2/2 volume contraction. IVF. baseline unknown as limited past data in [employer] but appears baseline previously 1.4 up to 1.8. #hyperglycemia - mild and nonfasting. permissive hyperglycemia in this elderly gentleman. #subtherapeutic inr for hx recurrent LE DVT - patient recently with INR 3.0 a few days ago before head injury. rx consult to assist with dosing. chronic medical issues #COPD - without exacerbation. #chronic compensated systolic CHF s/p AICD #spinal stenosis - PT/OT. pt denies any current back pain or radicular symptoms. #nocturnal hypoxia - supplemental O2 at HS and when asleep. FEN - IVF. cardiac diet. electrolyte replacement prn. PPX - SCDs. on coumadin subtherapeutic. will not bridge 2/2 increased risk bleeding. no suspicion for acute or active DVT/PE. COR - FULL. Dispo - admit to observation on medical floor at this time pending stroke eval and safe mobilization.
[2017-06-24] MEDS ORDERED: FUROSEMIDE 40 MG TAB PO SCH (09:00)
[2017-06-24] MEDS ORDERED: ATENOLOL 50 MG TAB PO SCH (09:00)
[2017-06-24] MEDS ORDERED: FLUTICASONE HFA 110 MCG MDI IH SCH (09:00)
[2017-06-24] MEDS ORDERED: IPRATROPIUM/ALBUTEROL 4GM MDI IH SCH (09:00)
[2017-06-24] MEDS ORDERED: amLODIPine BESYLATE 5 MG TAB PO SCH (09:00)
[2017-06-24] MEDS ORDERED: LISINOPRIL 10 MG TAB PO SCH (09:00)
[2017-06-24] MEDS ORDERED: PANTOPRAZOLE SODIUM 40 MG TAB PO SCH (09:00)
--- NOTE | 2017-06-24 10:00 | ASMTCASEMG ---
Living Arrangements What is your living Answers: With Spouse arrangement? Who do you live with? Type Of Residence What kind of residence do Answers: House you live in? Discharge Plan Comments Coordination Status Comments Notes: Pt is a 86 y/o man admitted for an unsteady gait and generalized weakness. Needs are TBD at this time. Therapies have been ordered and awaiting recommendations. CM to follow. Plan: TBD Date Signed: 06/24/2017 10:00 AM Electronically Signed By:LO Christine
[2017-06-24] MEDS: IPRATROPIUM HFA INHALER IH SCH ×2 (11:21→16:40)
--- NOTE | 2017-06-24 15:09 | ECHO ---
[email or web address] [address] [address] Main: [phone] Fax: Transthoracic Echocardiogram Name: MIRYAM EDWARDS MR#: [id number] Study Date: 06/24/2017 Study Time: 01:14 PM Date of : 1930 Age: 86 year(s) Height: 165.1 cm (65 in.) Weight: 77.57 kg (171 lb.) BSA: 1.85 m2 Gender: Male Examination: Echo Indication: R/O ischemic stroke/HX CABG/Pacer/MIs Image Quality: Contrast: Requested by: Carmen Aguirre BP: 158 mmHg/85 mmHg Heart Rate: Rhythm: Indication: R/O ischemic stroke/HX CABG/Pacer/MIs Procedure Staff Lpn Cma: Olga Christiansen Reading Physician: Miranda Boland Requesting Provider: Conclusions: Moderately to severely dilated left ventricle. The ejection fraction is estimated to be 25-30 %. The mid inferoseptal, mid inferior, mid inferolateral, mid anterolateral, apical inferior and apical lateral wall segments are hypokinetic. Diastolic dysfunction is present. . The left atrium is moderately dilated. Moderate mitral valve regurgitation is present. Compared with 03/2017 LV systolic function is similar; MR is worse Measurements: Chambers Valvular Assessment AV/MV Valvular Assessment TV/PV Normal Normal Normal Name Value Range Name Value Range Name Value Range Ao Tori (MM): 4.2 cm (2.2 cm-3.7 AV Vmax: 1.42 m/s (1 m/s-1.7 TR Vmax: 2.61 mm/s ( - ) cm) m/s) TR PGmax: 27 mmHg ( - ) IVSd (2D): 0.9 cm (0.6 cm-1.1 AV maxP mmHg ( - ) syst. PAP: 32 mmHg ( - ) cm) MV E Vmax: 0.91 m/s ( - ) LVDd (2D): 7.4 cm (4.2 cm-5.9 MV A Vmax: 1.18 m/s ( - ) cm) MV E/A: 0.77 ( - ) LVPWd (2D): 0.8 cm (0.6 cm-1 cm) LVEF (BP): 26 % (>=55 %) EF Range: 25-30 % Continued Measurements: Chambers Valvular Assessment AV/MV Valvular Assessment TV/PV Name Value Name Value Name Value Patient: MIRYAM EDWARDS Study Date: 06/24/2017 Page 1 of 2 01:14 PM LADs: 4.8 cm MV E/E' Septal: 26.60 CVP (est.): 5 mmHg LADs Lon.0 cm MV E/E' Lateral: 18.30 LA Area: 27.6 cm2 Findings: Left Ventricle: Moderately to severely dilated left ventricle. The ejection fraction is estimated to be 25-30 %. The mid inferoseptal, mid inferior, mid inferolateral, mid anterolateral, apical inferior and apical lateral wall segments are hypokinetic. Diastolic dysfunction is present. . Right Ventricle: Normal size right ventricle. There is a pacemaker lead noted in the right ventricle. Left Atrium: The left atrium is moderately dilated. Right Atrium: The right atrium is normal in size. Mitral Valve: The mitral valve is normal in appearance and function. Moderate-severe mitral annular calcification. Moderate mitral valve regurgitation is present. Aortic Valve: The aortic valve is normal in appearance and function. Tricuspid Valve: The tricuspid valve is normal in appearance and function. Mild tricuspid regurgitation is present. The pulmonary artery pressure is normal. Pulmonic Valve: The pulmonic valve is normal in appearance and function. Aorta: The aorta is normal. Pericardium: No pericardial effusion. (No Signature Object) Wall Motion Scores -1 - Not Scored, 0 - Unknown, 1 - Normal or hyperkinesia, 2 - Hypokinesia, 3 - Akinesia, 4 - Dyskinesia, 5 - Aneurysm Patient: MIRYAM EDWARDS Study Date: 06/24/2017 Page 2 of 2 01:14 PM [id number]
[2017-06-24] MEDS ORDERED: WARFARIN SODIUM 2 MG TAB PO SCH (16:00)
[2017-06-24 16:17] VITALS: BP 159/83; PULSE 60; RESP 16; TEMP 97.3; O2SAT 93
--- NOTE | 2017-06-24 16:37 | PDIAF ---
- Diagnosis Diagnosis: dehydration - dizziness - Medication Management Discharge Medications: Medications to Continue on Transfer Aspirin [Aspirin 81mg (*)] 81 mg PO HS 03/09/17 [Last Taken 06/22/17] Atenolol [Tenormin 50 mg (*)] 50 mg PO DAILY 03/09/17 [Last Taken 06/23/17] Cholecalciferol (Vitamin D3) [Vitamin D3] 2,000 unit PO DAILY 03/09/17 [Last Taken 06/23/17] Esomeprazole Mag Trihydrate [Nexium] 40 mg PO DAILY 03/09/17 [Last Taken ] Ferrous Sulfate [Ferrous Sulf 325 MG (*)] 325 mg PO DAILY 03/09/17 [Last Taken 06/23/17] Fluticasone Hfa 110 Mcg [Flovent 110 MCG Hfa MDI (*)] 2 puffs IH BID 03/09/17 [ Last Taken 06/23/17] Furosemide [Lasix 40 MG (*)] 40 mg PO DAILY 03/09/17 [Last Taken 06/23/17] Lisinopril [Zestril 10 mg (*)] 10 mg PO DAILY 03/09/17 [Last Taken 06/23/17] Nitroglycerin [Nitrostat 0.4 mg (*)] 0.4 mg SL Q5M PRN 03/09/17 [Last Taken Unknown] Rosuvastatin Calcium [Crestor 40mg (*)] 40 mg PO HS 03/09/17 [Last Taken ] Warfarin Sodium [Coumadin 2MG (*)] 2 mg PO MWF@1600 03/09/17 [Last Taken ] amLODIPine BESYLATE [Norvasc 5 mg (*)] 5 mg PO DAILY 03/09/17 [Last Taken ] C/E/Zn/Cu/OM3/DHA/EPA/LUT/ZEAX [Preservision Areds 2 Softgel] 1 each PO BID [Last Taken 06/23/17 08:00] Colchicine [Colchicine (*)] 0.6 mg PO .1-2DAYS/WEEK 06/23/17 [Last Taken ] Gabapentin [Neurontin 100 MG (*)] 100 mg PO BID 06/23/17 [Last Taken 06/23/17 08 :00] Ipratropium [Atrovent Hfa (*)] 3 puffs IH TID 06/23/17 [Last Taken 06/23/17] Ipratropium/Albuterol [Combivent Respimat Inhal [place](*)] 1 inh IH DAILY [Last Taken 06/23/17] Warfarin Sodium [Coumadin 2MG (*)] 1 mg PO SUTUTHFRSA@1600 06/23/17 [Last Taken 06/22/17 16:00] Discharge Medications: Refer to the Discharge Home Medication list for PRN reason. - Orders Services needed: Home Care, Physical Therapy, Occupational Therapy Home Care Face to Face: I certify that this patient was under my care and that I had the required [id number] encounter meeting the encounter requirements on the discharge day. My findings support the fact that the patient is homebound as defined in Home Care Face to Face Continued: CMS Chapter 7 Medicare Benefits Manual 30.1.1 , The condition of the patient is such that there exists a normal inability to leave home and consequently, leaving home would require a considerable and taxing effort. Diet Recommendation: cardiac -low fat low salt Diet Texture: Regular Texture Diet - Follow Up Care Current Providers and Referrals: Aurelia Pollock MD [Primary Care Provider] - As per Instructions
--- NOTE | 2017-06-24 20:20 | GDS ---
[f rep st] DISCHARGE SUMMARY DISCHARGE DIAGNOSES: 1. Acute dizziness, suspect secondary to dehydration. 2. Coronary artery disease, status post coronary artery bypass grafting. 3. Chronic systolic heart failure. 4. Chronic obstructive pulmonary disease. 5. History of deep venous thrombosis, on chronic anticoagulation. 6. Hyperlipidemia. 7. Prostate cancer. 8. Nocturnal hypoxia. 9. Hypertension. 10. Chronic kidney disease, 3. 11. Spinal stenosis. 12. Chronic diarrhea status post partial colectomy. 13. Gastroesophageal reflux disease. 14. Gout. HISTORY OF PRESENT ILLNESS: This is an 86-year-old male who presented with sudden onset of dizziness and lightheadedness. For details of patient's initial presentation, please see the history and physi nina dated 06/23/2017. CONSULTATIVE SERVICES: None. PROCEDURES: 1. On 06/23/2017, patient had a noncontrast CT of the head, showed no acute intracranial findings. 2. On 06/23/2017, patient had carotid ultrasound, showed no significant flow-limiting stenoses. 3. On 06/23/2017, patient had a transthoracic echocardiogram that showed reduction in his systolic f unction and segmental wall motion abnormalities, none of which described as new. HOSPITAL COURSE: Acute dizziness. Patient received fluid resuscitation, and no other intervention wi th improvement, near resolution of his symptoms. Suspect the patient may have been a bit dehydrated. On review of his oral intake, it sounds as if the patient drinks coffee in the morning and then has no other significant fluid intake thereafter. We have encouraged him to improve his hydration through out the day. Patient will follow in the outpatient setting with his primary care provider, Dr. Pollock, in 2-3 weeks for review of his symptoms after an effort for proper hydration. Patient was seen by PT/ OT who cleared him for discharge home with recommendations for home therapies, which we forwarded. MEDICATIONS AT THE TIME OF DISPOSITION: Please reference medication reconciliation printed on 2017. FOLLOWUP APPOINTMENTS: Include with Dr. Pollock in 2-3 weeks post disposition for vital signs tech and review post discharge followup. PENDING STUDIES: At the time of this dictation are none. TIME: I spent greater than 30 minutes in the planning and coordination of this discharge. /[id number]/MODL
--- NOTE | 2017-06-25 09:31 | ASDISCHSUM ---
Discharge Information Plan Status:Home with Home Health Medically Cleared to Leave:06/23/2017 Discharge Date:06/24/2017 05:49 PM CM D/C Disposition:Home Health Service ADT D/C Disposition:Home Health Service Projected Discharge Date:06/24/2017 06:00 PM Transportation at D/C:Family Discharge Delay Reason: Follow-Up Date:06/24/2017 06:00 PM Discharge Slot: Final Diagnosis:Dizziness-Dehydration Placement Information Patient Contact Information Contact Name:EDEN Relationship: Address:[address] City:[place] Alternate Phone: [facility]/Zip Code:[place] [address] Email: Financial Information Financial Class: Primary Plan Desc:MEDICARE OUTPATIENT Primary Plan Number:[id number] Secondary Plan Desc:[facility] Secondary Plan Number:[id number] Assessment Information [facility] Initial CM Assessment Living Arrangements What is your living Answers: With Spouse arrangement? Who do you live with? Type Of Residence What kind of residence do Answers: House you live in? Discharge Plan Comments Coordination Status Comments Notes: Pt is a 86 y/o man admitted for an unsteady gait and generalized weakness. Needs are TBD at this time. Therapies have been ordered and awaiting recommendations. CM to follow. Plan: TBD Date Signed: 06/24/2017 10:00 AM Electronically Signed By:LO Christine Case Management Discharge Plan Note Case Management Discharge Discharge Order Complete? Answers: Yes Patient to Obtain Answers: via Family Medications Transportation Arranged Answers: Family/Friends Transport will Pick (Date 06/24/2017 05:30 PM & Time) Faxed Final Orders Answers: Yes Notes: [facility] Family Notified Answers: Yes Notes: Family transported patient home Discharge Comments Notes: Patient discharged home 06/24/17. set up with [facility] today. Patient info faxed to [facility]. Did not use [employer]. Date Signed: 06/25/2017 09:30 AM Electronically Signed By:Carlee Cool LCSW Intervention Information
== END 2017-06-24 17:49 | disposition home health service (06) ==
LOC: EDUNIT# → F1N 23:15
PROVIDERS: ADMIT Family Medicine; ATTEND Family Medicine
DX: E86.0 Dehydration (principal); I25.10 Atherosclerotic heart disease of native coronary artery without angina pectoris; I50.22 Chronic systolic (congestive) heart failure; J44.9 Chronic obstructive pulmonary disease, unspecified; E78.5 Hyperlipidemia, unspecified; C61 Malignant neoplasm of prostate; R09.02 Hypoxemia; I12.9 Hypertensive chronic kidney disease with stage 1 through stage 4 chronic kidney disease, or unspecified chronic kidney disease; N18.3 Chronic kidney disease, stage 3 (moderate); M48.00 Spinal stenosis, site unspecified; K52.9 Noninfective gastroenteritis and colitis, unspecified; K21.9 Gastro-esophageal reflux disease without esophagitis; M10.9 Gout, unspecified; Z95.1 Presence of aortocoronary bypass graft; Z95.0 Presence of cardiac pacemaker; Z86.718 Personal history of other venous thrombosis and embolism; Z79.01 Long term (current) use of anticoagulants; N17.9 Acute kidney failure, unspecified; E87.0 Hyperosmolality and hypernatremia
CPT/HCPCS: 70450; 71020; 93005; 93306; 93880; 97161; 97165; G0378; G8978; G8979; G8980; G8987; G8988; G8989; 84480-90

== ENCOUNTER → 2017-11-29 | Outpatient (CLI) | payer OTHER, BC | LOC: FIMAGING 12:01 | DX: M51.36 Other intervertebral disc degeneration, lumbar region (principal); M51.37 Other intervertebral disc degeneration, lumbosacral region ==

== ENCOUNTER → 2018-02-19 | Outpatient (CLI) | payer OTHER, BC | LOC: FIMAGING 10:07 | PROVIDERS: ATTEND Internal Medicine Hematology & Oncology | DX: Z13.820 Encounter for screening for osteoporosis (principal); M81.0 Age-related osteoporosis without current pathological fracture; Z85.46 Personal history of malignant neoplasm of prostate ==

== ENCOUNTER → 2018-10-21 | Outpatient (CLI) | payer OTHER, BC | LOC: FIMAGING 10:52 | PROVIDERS: ATTEND Internal Medicine | DX: G31.9 Degenerative disease of nervous system, unspecified (principal); I67.2 Cerebral atherosclerosis; J01.90 Acute sinusitis, unspecified; H66.91 Otitis media, unspecified, right ear ==

== ENCOUNTER → 2018-10-30 | Outpatient (CLI) | payer OTHER, BC | LOC: BHFA 10:45 | PROVIDERS: ATTEND Internal Medicine Cardiovascular Disease | DX: I48.91 Unspecified atrial fibrillation (principal); I25.10 Atherosclerotic heart disease of native coronary artery without angina pectoris; Z95.0 Presence of cardiac pacemaker; Z86.73 Personal history of transient ischemic attack (TIA), and cerebral infarction without residual deficits ==